=== PATIENT | male | born 1990 | race Caucasian/White ===

== ENCOUNTER 2019-01-12 13:44 | Emergency (ER) | payer SELFPAY ==
--- NOTE | ~2019-01-12 | EKG ---
[place], [place] ELECTROCARDIOGRAM REPORT NAME: STEW GIL UNIT #: [id number] ROOM: DOCTOR: EPIPHANY DRAFT REPORT BIRTHDATE: [birth year] [facility] Test Date: 2019-01-12 Test Time: 14:47:55 Pat Name: STEW GIL Department: Room: Gender: [employer] Operator: Hien Alford : 1990 Requested By: ERIC GARIBAY Order Number: [id number] Reading MD: Giovanni Jackson MD Measurements Intervals [place] Rate: 85 P: 39 HI: 154 QRS: 10 QRSD: 83 T: 105 QT: 347 QTc: 413 Interpretive Statements Sinus rhythm Nonspecific T abnrm, anterolateral leads Baseline wander in lead(s) V1 No previous ECG available for comparison Electronically Signed On 01-12-2019 16:24:50 PST by Giovanni Jackson MD CM:EKGRPT:ELECTROCARDIOGRAM REPORT [id number] ERIC VILLA DRAFT REPORT ERIC GARIBAY MD
--- NOTE | ~2019-01-12 | EKG ---
[place], [place] ELECTROCARDIOGRAM REPORT NAME: STEW GIL UNIT #: [id number] ROOM: DOCTOR: EPIPHANY DRAFT REPORT BIRTHDATE: [birth year] [facility] Test Date: 2019-01-12 Test Time: 14:57:22 Pat Name: STEW GIL Department: Room: Gender: [employer] Maker: Hien Alford : 1990 Requested By: ERIC GARIBAY Order Number: [id number] Reading MD: Giovanni Jackson MD Measurements Intervals [place] Rate: 90 P: 44 CT: 145 QRS: 9 QRSD: 86 T: 120 QT: 342 QTc: 419 Interpretive Statements Sinus rhythm Abnrm T, consider ischemia, anterolateral lds No change from earlier ECG this date Electronically Signed On 01-12-2019 16:25:18 PST by Giovanni Jackson MD CM:EKGRPT:ELECTROCARDIOGRAM REPORT [id number] ERIC GARIBAY MD EPIPHANY DRAFT REPORT ERIC GARIBAY MD
[2019-01-12] MEDS ORDERED: PAXIL20 M1 PO (14:01)
[2019-01-12 14:56] LABS: BASO # 0.1 10*3/uL (0.0-0.1); BASO % 0.7 % (0.0-1.0); EOS # 0.1 10*3/uL (0.0-0.4); EOS % 0.7 % (1.0-4.0); HEMATOCRIT 44.7 % (42.0-52.0); HEMOGLOBIN 15.5 g/dl (14.0-18.0); MEAN CELL VOLUME 85.8 fl (80.0-94.0); MEAN CORPUSCULAR HGB 29.8 pg (27.0-31.0); MEAN CORPUSCULAR HGB CONC 34.7 g/dl (33.0-37.0); MONO # 1.2 10*3/uL (0.1-1.0); MONO % 11.5 % (3.0-9.0); NEUT % 76.9 % (47.0-73.0); PLATELET COUNT AUTOMATED 279 10*3/uL (130-400); RED BLOOD COUNT 5.21 10*6/uL (4.50-5.90); RED CELL DISTRI WIDTH 12.2 % (0-14.5); WHITE BLOOD COUNT 10.3 10*3/uL (4.8-10.8)
[2019-01-12 15:40] LABS: ALKALINE PHOSPHATASE 96 U/L (45-117); BUN 12 mg/dl (7-24); CHLORIDE 105 mmol/L (98-107); CREATININE 1.01 mg/dL (0.70-1.30); POTASSIUM 3.8 mmol/L (3.5-5.1); SGOT/AST 13 IU/L (3-35); SGPT/ALT 38 U/L (12-78); SODIUM 140 mmol/L (136-145); TOTAL PROTEIN 8.3 gm/dL (6.4-8.2)
[2019-01-12 15:44] LABS: TROPONIN I < 0.015 ng/ml (<0.045)
[2019-01-12 15:48] LABS: THYROID STIM HORMONE (HS) 0.559 uIU/ml (0.358-4.75)
[2019-01-12 16:22] LABS: BILIRUBIN 1+ (NEGATIVE); BLOOD NEGATIVE (NEGATIVE); CLARITY CLEAR (CLEAR); COLOR YELLOW (YELLOW); GLUCOSE NEGATIVE (NEGATIVE); KETONE 1+ (NEGATIVE); LEUKO ESTERASE NEGATIVE (NEGATIVE); NITRITE NEGATIVE (NEGATIVE); SPECIFIC GRAVITY 1.025 (1.005-1.030); UROBILINOGEN 0.2 E.U./dl (0.2-1.0)
[2019-01-12 16:30] LABS: EPITHELIAL CELLS 0-2; URINE AMPHETAMINES < 1000 (1000ng/ml); URINE BARBITURATES < 200 (200ng/ml); URINE BENZODIAZEPINES < 200 (200ng/ml); URINE CANNABINOIDS (THC) < 50 (50ng/ml); URINE COCAINE < 300 (300ng/ml); URINE METHADONE < 300 (300ng/ml); URINE OPIATES < 300 (300ng/ml); WBC 0-2 wbc/hpf (0-5)
[2019-01-12 16:42] LABS: URINE PHENCYCLIDINE < 25 (25ng/ml)
== END 2019-01-12 17:30 | disposition left against medical advice (07) ==
LOC: ED 13:44
PROVIDERS: Emergency Medicine
DX: F41.9 Anxiety disorder, unspecified (principal); R00.2 Palpitations; R07.9 Chest pain, unspecified; R94.31 Abnormal electrocardiogram [ECG] [EKG]; R51 Headache; Z79.899 Other long term (current) drug therapy